=== PATIENT | male | born 1965 | race African-American/Black ===

== ENCOUNTER 2019-09-20 12:19 | Emergency (ER) | payer MEDICARE, MEDICAID ==
[~2019-09-20] VITALS: Ht 182.9 cm; Wt 86.2 kg
[2019-09-20] MEDS ORDERED: Lidocaine 1% MPF 10mg/ml 5ml INJ ONE (12:30)
[2019-09-20] MEDS ORDERED: Azithromycin 250mg tab ORAL ONE (12:30)
--- NOTE | 2019-09-20 12:35 | NUR ---
ED Nurse Note: Pt walked into ED w/ c/o urogenital. Pt has white discharge, bleeding fro urethra, swelling in penis, and erthema for 4 days. Pt is alert and orientedx4, ambulatory. 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 Pt states he is having unprotected sex.
[2019-09-20 12:46] VITALS: BP 128/75
--- NOTE | 2019-09-20 13:04 | Emergency Room Report ---
History of Present Illness General Chief Complaint: Male Urogenital Problems Source: Patient Present Illness HPI 54-year-old male with unknown past medical history who appears to be under the influence of an unknown stimulant here complaining of penile discharge for few days. Patient reports that he has a habit of sleeping with different women and having recurrent STDs. Patient is requesting prophylactic treatment for chlamydia and gonorrhea. Denies testicular pain or swelling, urinary frequency and urgency. Denies fever and chills, nausea vomiting, suprapubic pain, flank pain. Has not taken medication for symptom relief. Reports that he does not use condoms. Allergies: Coded Allergies: HALOPERIDOL (Verified Allergy, Unknown, 09/20/19) Patient History Past Medical History: see triage record Past Surgical History: unable to obtain Pertinent Family History: none Immunizations: UTD Reviewed Nursing Documentation: PMH: Agreed; PSxH: Agreed Nursing Documentation-PMH Past Medical History: No Stated History Review of Systems All Other Systems: negative except mentioned in HPI Physical Exam Vital Signs Date Time Temp Pulse Resp B/P (MAP) Pulse Ox O2 Delivery O2 Flow Rate FiO2 09/20/19 12:22 98.4 74 18 131/76 (94) 96 Room Air Sp02 EP Interpretation: reviewed, normal General Appearance: well appearing, no apparent distress Head: normocephalic, atraumatic ENT: hearing grossly normal, normal voice Neck: full range of motion, supple Respiratory: lungs clear, no respiratory distress, speaking full sentences Cardiovascular #1: no edema, no gallop, no murmur Gastrointestinal: non tender, soft Genitourinary: no CVA tenderness Musculoskeletal: gait/station normal Neurologic: alert, normal gait Psychiatric: other - Appears to be under the influence of stimulant Skin: no rash Lymphatic: no adenopathy Medical Decision Making PA Attestation All diagnoses and treatment plans were reviewed and discussed with my supervising physician Dr. Rendon Diagnostic Impression: Primary Impression: STD exposure ER Course 54-year-old male with unknown past medical history who appears to be under the influence of an unknown stimulant here complaining of penile discharge for few days. Patient reports that he has a habit of sleeping with different women and having recurrent STDs. Patient is requesting prophylactic treatment for chlamydia and gonorrhea. Denies testicular pain or swelling, urinary frequency and urgency. Denies fever and chills, nausea vomiting, suprapubic pain, flank pain. Has not taken medication for symptom relief. Reports that he does not use condoms. Ddx considered but are not limited to: UTI, chlamydia, Gonorrhea, syphilis, HIV , herpes 1 or 2 Vital signs: are WNL, pt. is afebrile H&PE are most consistent with : STD exposure ORDERS: UA, urince cx, ED INTERVENTIONS: Rocephin IM and azithromycin p.o. DISCHARGE: At this time pt. is stable for d/c to home. Will provide printed patient care instructions, and any necessary prescriptions. Care plan and follow up instructions have been discussed with the patient prior to discharge. Advised patient to wear condoms and follow-up with primary care doctor, patient was given medication at the ED however left without paperwork. Did not wait for urine results. Last Vital Signs Date Time Temp Pulse Resp B/P (MAP) Pulse Ox O2 Delivery O2 Flow Rate FiO2 09/20/19 12:46 98.4 87 20 128/75 98 Room Air Disposition: HOME, SELF-CARE Condition: Stable Patient Instructions: Chlamydia, Female, [id number], Gonorrhea Jennifer Su Sep 20, 2019 13:04
[2019-09-20 13:31] LABS: APPEARANCE,URINE CLEAR; BILIRUBIN, URINE NEGATIVE (NEGATIVE); GLUCOSE, URINE (UA) NEGATIVE (NEGATIVE); KETONES,URINE NEGATIVE (NEGATIVE); LEUKOCYTE ESTERASE ,URINE NEGATIVE (NEGATIVE); NITRITE,URINE NEGATIVE (NEGATIVE); PH,URINE 6 (4.5-8.0); PROTEIN,URINE NEGATIVE (NEGATIVE); UROBILINOGEN,URINE 1 MG/DL (0.0-1.0)
[2019-09-20 13:34] LABS: COLOR,URINE YELLOW
--- NOTE | 2019-09-20 13:48 | NUR ---
ELOPEMENT: Pt walked out of room and left the hospital with all his belongings. He stated he couldn't wait any more and he kept asking if there were modi doctors or nurses and said he "didn't want no modi doctors." Pt informed he had to wait for results and they woudl come soon but stated he "couldn't wait any longer. This is fucking long." Pt walked out w/ wristband and w/out signing AMA papers or being notified of risks. Pt had no IV. Pt alert and orientedx4, ambulatory.
--- NOTE | 2019-09-20 13:49 | NUR ---
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
== END 2019-09-20 13:48 | disposition home or self-care (01) ==
LOC: EMR 13:00
DX: Z20.2 Contact with and (suspected) exposure to infections with a predominantly sexual mode of transmission (principal); Z88.8 Allergy status to other drugs, medicaments and biological substances
CPT/HCPCS: 81003; 96372; 99283; J0696